=== PATIENT | male | born 1995 | race Caucasian/White ===

== ENCOUNTER 2024-01-09 01:30 | Emergency (ER) | payer SELFPAY ==
[~2024-01-09] VITALS: Ht 170.2 cm; Wt 76.0 kg
[2024-01-09 01:36] VITALS: O2SAT 98
[2024-01-09 03:48] LABS: BG CARBOXYHEMOGLOBIN 0.3 % (0.5-1.5); BG DEOXYHEMOGLOBIN 3.5 % (0.0-5.0); BG HCO3 ACT 20.7 mmol/L (22.0-26.0); BG METHEMOGLOBIN 0.2 % (0.0-1.5); BG OXYGEN SATURATION 96.5 % (92.0-98.5); BG PCO2 33.7 mmHg (35.0-45.0); BG PH 7.406 (7.350-7.450); BG PO2 89.6 mmHg (75.0-100.0); BG SAMPLE SITE RIGHT RADIAL; BG TOTAL HEMOGLOBIN 16.7 g/dL (12.0-18.0); BG VENT MODE ROOM AIR
[2024-01-09 04:07] VITALS: BP 118/66; PULSE 73; RESP 18; TEMP 98.5
== END 2024-01-09 04:08 | disposition home or self-care (01) ==
LOC: ER 01:30
DX: J68.9 Unspecified respiratory condition due to chemicals, gases, fumes and vapors (principal); Z77.098 Contact with and (suspected) exposure to other hazardous, chiefly nonmedicinal, chemicals
CPT/HCPCS: 36600; 82375; 82805; 99283